=== PATIENT | male | born 2000 | race Caucasian/White ===

== ENCOUNTER 2023-10-24 09:54 | Emergency (ER) | payer OTHER, BC ==
[~2023-10-24] VITALS: Ht 185.4 cm; Wt 90.7 kg
[2023-10-24 10:04] VITALS: BP 163/83
== END 2023-10-24 21:33 | disposition home or self-care (01) ==
LOC: ER 09:54
DX: S43.101A Unspecified dislocation of right acromioclavicular joint, initial encounter (principal); V49.9XXA Car occupant (driver) (passenger) injured in unspecified traffic accident, initial encounter; F17.210 Nicotine dependence, cigarettes, uncomplicated
CPT/HCPCS: 73030; 99283-25